=== PATIENT | male | born 1955 | race Caucasian/White ===

== ENCOUNTER 2017-05-10 09:51 | Observation (INO) | payer MEDICARE ==
[~2017-05-10] VITALS: Ht 165.1 cm; Wt 66.3 kg
[2017-05-10] VITALS (11 sets, daily range): BP systolic 148–187; BP diastolic 67–86; PULSE 55–68; RESP 12–33; TEMP 94.5–98.6; O2SAT 88–99
[~2017-05-10 09:51] MED LIST: AMLO5TAB22 PO; LISI-357 PO; LYRI150C PO; NAPR500 PO
[2017-05-10] MEDS ORDERED: SODIUM CHLOR 0.9% 1000 ML INJ 1,000 ML IV ONE ×2 (10:00→11:15)
[2017-05-10] MEDS ORDERED: ONDANSETRON HCL 4 MG/2 ML VIAL IV PUSH ONE (10:00)
[2017-05-10] MEDS ORDERED: AMLO5TAB2 PO (10:07)
[2017-05-10] MEDS ORDERED: LYRI150C PO (10:07)
[2017-05-10] MEDS ORDERED: LISI2.5T3 PO (10:07)
--- NOTE | 2017-05-10 10:07 | PD ---
HPI Chief Complaint: Syncope/Near-Syncope Time Seen by Provider: 09:56 Travel History International Travel<30 days: No Contact w/Intl Traveler<30days: No Traveled to known affect area: No History of Present Illness HPI This 61-year-old male apparently had a syncopal episode last night. His girlfriend found him on the floor and got him back in the bed. He then had some vomiting this morning. He has been vomiting off and on for the last few days. He has no history of seizure. He does not recall passing out before. He does say that he vomited twice last night. He had 2 beers last night. He does say that he has been a heavy drinker in the past. He says that several years ago he had DTs. His license has been taken away because of a DUI. He says that he still drinks once a week. He is on medication for hypertension and he takes Lyrica for neuropathy. He says that this morning he got his been a pass out. He was crawling around on his knees because he was extremely dizzy [facility] Past Medical History High Cholesterol: Yes Diabetes: No Hepatitis: Yes (hx of hep c) Hypertension: Yes Neurologic: Yes (bilat legs neuropathy) ?: Not Past Surgical History Endocrine Surgery: Yes (penile implant) Other Surgery: Yes (femoral stent placement) Social History Alcohol Use: Yes (occas. beer) Tobacco Use: No (quit 25 yrs ago smoked for 25+ yrs 2 packs of cigs a day) Substance Use: No Allergies-Medications (Allergen,Severity, Reaction): Coded Allergies: Sulfa (Sulfonamide Antibiotics) (Unverified Allergy, Mild, rash, 05/10/17) Reported Meds & Prescriptions Reported Meds & Active Scripts Active Reported Lisinopril 2.5 Mg Tab 0 PO DAILY Amlodipine (Amlodipine Besylate) 5 Mg Tab 0 PO DAILY Lyrica (Pregabalin) 150 Mg Cap 175 Mg PO BID Review of Systems General / Constitutional: No: Fever, Chills Eyes: No: Diploplia, Blurred Vision HENT: Positive: Vertigo, Lightheadedness Cardiovascular: No: Chest Pain or Discomfort, Palpitations Respiratory: No: Cough, Shortness of Breath Gastrointestinal: Positive: Nausea, Vomiting Genitourinary: No: Urgency, Frequency Musculoskeletal: No: Myalgias, Arthralgias Skin: No Rash Psychiatric: Positive: Substance Abuse Endocrine: No: Heat Intolerance Hematologic/Lymphatic: No: Easy Bruising Physical Exam Narrative GENERAL: Well-developed male SKIN: Focused skin assessment warm/dry. HEAD: Atraumatic. Normocephalic. EYES: Pupils equal and round. No scleral icterus. No injection or drainage. ENT: No nasal bleeding or discharge. Mucous membranes pink and moist. NECK: Trachea midline. No JVD. CARDIOVASCULAR: Regular rate and rhythm. No murmur appreciated. RESPIRATORY: No accessory muscle use. Clear to auscultation. Breath sounds equal bilaterally. GASTROINTESTINAL: Abdomen soft, non-tender, nondistended. Hepatic and splenic margins not palpable. MUSCULOSKELETAL: No obvious deformities. No clubbing. No cyanosis. No edema. NEUROLOGICAL: Awake and alert. He is somewhat slow to answer questions. He says that the is March No obvious cranial nerve deficits. Motor symmetrically weak. slow speech. He does have some past pointing PSYCHIATRIC: Insight limited Data Data Last Documented VS Vital Signs Date Time Temp Pulse Resp B/P (MAP) Pulse Ox O2 Delivery O2 Flow Rate FiO2 05/10/17 10:53 58 16 152/74 (100) 98 Room Air 05/10/17 09:53 95.2 Orders Orders Electrocardiogram (05/10/17 09:57) Complete Blood Count With Diff (05/10/17 09:57) Comprehensive Metabolic Panel (05/10/17 09:57) Troponin I (05/10/17 09:57) Prothrombin Time / Inr (Pt) (05/10/17 09:57) Act Partial Throm Time (Ptt) (05/10/17 09:57) Lipase (05/10/17 09:57) Urinalysis - C+S If Indicated (05/10/17 09:57) Magnesium (Mg) (05/10/17 09:57) Ammonia (05/10/17 09:57) Thyroid Stimulating Hormone (05/10/17 09:57) Ct Brain W/O Iv Contrast(Rout) (05/10/17 09:57) Drug Screen, Random Urine (05/10/17 09:57) Alcohol (Ethanol) (05/10/17 09:57) Sodium Chlor 0.9% 1000 Ml Inj (Ns 1000 M (05/10/17 10:00) Ondansetron Inj (Zofran Inj) (05/10/17 10:00) Thiamine Inj (Thiamine Inj) (05/10/17 10:15) Sodium Chlor 0.9% 1000 Ml Inj (Ns 1000 M (05/10/17 11:15) Labs Laboratory Tests Test 05/10/17 10:15 White Blood Count 7.8 TH/MM3 Red Blood Count 4.74 MIL/MM3 Hemoglobin 15.0 GM/DL Hematocrit 43.6 % Mean Corpuscular Volume 91.8 FL Mean Corpuscular Hemoglobin 31.6 PG Mean Corpuscular Hemoglobin Concent 34.4 % Red Cell Distribution Width 13.6 % Platelet Count 298 TH/MM3 Mean Platelet Volume 8.2 FL Neutrophils (%) (Auto) 80.7 % Lymphocytes (%) (Auto) 9.1 % Monocytes (%) (Auto) 9.8 % Eosinophils (%) (Auto) 0.1 % Basophils (%) (Auto) 0.3 % Neutrophils # (Auto) 6.3 TH/MM3 Lymphocytes # (Auto) 0.7 TH/MM3 Monocytes # (Auto) 0.8 TH/MM3 Eosinophils # (Auto) 0.0 TH/MM3 Basophils # (Auto) 0.0 TH/MM3 CBC Comment DIFF FINAL Differential Comment Prothrombin Time 10.7 SEC Prothromb Time International Ratio 1.0 RATIO Activated Partial Thromboplast Time 27.3 SEC Blood Urea Nitrogen 33 MG/DL Creatinine 1.60 MG/DL Random Glucose 126 MG/DL Total Protein 8.2 GM/DL Albumin 4.0 GM/DL Calcium Level 9.7 MG/DL Magnesium Level 2.7 MG/DL Alkaline Phosphatase 72 U/L Aspartate Amino Transf (AST/SGOT) 59 U/L Alanine Aminotransferase (ALT/SGPT) 57 U/L Total Bilirubin 0.6 MG/DL Sodium Level 141 MEQ/L Potassium Level 4.0 MEQ/L Chloride Level 106 MEQ/L Carbon Dioxide Level 23.5 MEQ/L Anion Gap 12 MEQ/L Estimat Glomerular Filtration Rate 44 ML/MIN Ammonia 11 MCMOL/L Troponin I LESS THAN 0.02 NG/ML Lipase 123 U/L Thyroid Stimulating Hormone 3rd Gen 0.930 uIU/ML Ethyl Alcohol Level 3 MG/DL [facility] Medical Decision Making Medical Screen Exam Complete: Yes Emergency Medical Condition: Yes Medical Record Reviewed: Yes Differential Diagnosis Differential includes syncope, dysrhythmia, dehydration, DTs, seizure Narrative Course CT scan is read as negative. His BUNs is 33 with creatinine of 1.6. Ammonia level was 11. Hemoglobin is 15. EKG shows sinus rhythm at a rate of 60. There is a right bundle branch block pattern. Diagnosis Primary Impression: Syncope Qualified Codes: R55 - Syncope and collapse Additional Impression: Dehydration Rafa Clayton MD May 10, 2017 10:07
[2017-05-10] MEDS ORDERED: THIAMINE INJ 100 MG in SODIUM CHLORIDE 0.9% INJ 100 ML IV ONE (10:15)
[2017-05-10 10:21] LABS: AUTOMATED NEUTROPHIL # 6.3 TH/MM3 (1.8-7.7); BASOPHIL % 0.3 % (0.0-2.0); EOSINOPHIL % 0.1 % (0.0-4.0); HEMATOCRIT 43.6 % (39.0-51.0); LYMPH % 9.1 % (9.0-44.0); LYMPHOCYTE # 0.7 TH/MM3 (1.0-4.8); MEAN CELL VOLUME 91.8 FL (80.0-100.0); MEAN CORPUSCULAR HEMOGLOBIN 31.6 PG (27.0-34.0); MEAN CORPUSCULAR HGB CONC 34.4 % (32.0-36.0); MONO % 9.8 % (0.0-8.0); NEUT % 80.7 % (16.0-70.0); PLATELET COUNT 298 TH/MM3 (150-450); RED BLOOD COUNT 4.74 MIL/MM3 (4.50-5.90); RED CELL DISTRIBUTION WIDTH 13.6 % (11.6-17.2); WHITE BLOOD COUNT 7.8 TH/MM3 (4.0-11.0)
[2017-05-10 10:22] LABS: HEMO FLAGS DIFF FINAL
[2017-05-10 10:29] LABS: CHLORIDE 106 MEQ/L (98-107); SODIUM (NA) 141 MEQ/L (136-145)
[2017-05-10 10:33] LABS: ANION GAP 12 MEQ/L (5-15); BICARBONATE 23.5 MEQ/L (21.0-32.0); BLOOD UREA NITROGEN 33 MG/DL (7-18); MAGNESIUM 2.7 MG/DL (1.5-2.5)
[2017-05-10 10:34] LABS: APTT (PATIENT) 27.3 SEC (24.3-30.1); PROTHROMBIN TIME - PATIENT 10.7 SEC (9.8-11.6)
[2017-05-10 10:36] LABS: ALCOHOL 3 MG/DL (0-5); ALT (GPT) 57 U/L (12-78); AST (GOT) 59 U/L (15-37); GLOMERULAR FILTRATION RATE 44 ML/MIN (>89)
[2017-05-10 10:38] LABS: TOTAL BILIRUBIN ADULT 0.6 MG/DL (0.2-1.0)
[2017-05-10 10:39] LABS: ALKALINE PHOSPHATASE 72 U/L (45-117)
--- NOTE | 2017-05-10 11:04 | RADRPT ---
EXAM DATE/TIME: 05/10/2017 10:16 [place] COMPARISON: No previous studies available for comparison. INDICATIONS : Syncopal episode and altered mental status. RADIATION DOSE: 58.65 CTDIvol (mGy) ; Patient motion MEDICAL HISTORY : Hypertension. SURGICAL HISTORY : Femoral stent placement. Orthopedic surgery. ENCOUNTER: Initial ACUITY: 1 day PAIN SCALE: 0/10 LOCATION: cranial TECHNIQUE: Multiple contiguous axial images were obtained of the head. Using automated exposure control and adj ustment of the mA and/or kV according to patient size, radiation dose was kept as low as reasonably a chievable to obtain optimal diagnostic quality images. DICOM format image data is available electro nically for review and comparison. FINDINGS: CEREBRUM: The ventricles are normal for age. No evidence of midline shift, mass lesion, hemorrhage or acute in farction. No extra-axial fluid collections are seen. POSTERIOR FOSSA: The cerebellum and brainstem are intact. The 4th ventricle is midline. The cerebellopontine angle i s unremarkable. EXTRACRANIAL: The visualized portion of the orbits is intact. SKULL: The calvaria is intact. No evidence of skull fracture. CONCLUSION: Normal examination. Ayden Elaine MD on May 10, 2017 at 11:02 Board Certified Radiologist. This report was verified electronically.
[2017-05-10] MEDS ORDERED: LORazepam 1 MG TAB PO PRN (11:30)
[2017-05-10] MEDS ORDERED: LORazepam 2 MG/ML VIAL IV PUSH PRN ×4 (11:30)
[2017-05-10] MEDS ORDERED: LORazepam 2 MG TAB PO PRN (11:30)
[2017-05-10] MEDS ORDERED: SODIUM CHLORIDE 0.9% FLUSH 10 ML FLUSH IV FLUSH PRN (11:30)
[2017-05-10] MEDS ORDERED: FLUMAZENIL 0.5 MG/5 ML VIAL IV PUSH PRN (11:30)
[2017-05-10] MEDS ORDERED: ONDANSETRON HCL 4 MG/2 ML VIAL IVP PRN (11:30)
[2017-05-10] MEDS: ACETAMINOPHEN 325 MG TAB PO PRN (11:59)
--- NOTE | 2017-05-10 12:04 | EKG ---
Date Performed: 05/10/2017 Time Performed: 10:06:01 PTAGE: 61 years EKG: SINUS BRADYCARDIA RIGHT BUNDLE BRANCH BLOCK LEFT ANTERIOR FASCICULAR BLOCK ABNORMAL ECG NO PREVIOUS TRACING DOCTOR: Ivan García Interpretating Date/Time 05/10/2017 12:02:27
[2017-05-10 13:20] LABS: BLOOD, URINE NEG (NEG); GLUCOSE,URINE NEG (NEG); KETONE, URINE TRACE mg/dL (NEG); NITRITE,URINE NEG (NEG); PH, URINE 5.5 (5.0-8.5)
[2017-05-10 13:25] LABS: METHOD OF COLLECTION CLEAN CATCH; URINE COLOR YELLOW (YELLW/STRAW)
[2017-05-10 13:26] LABS: COMMENT (UR) CULT NOT INDICATED; CULTURE IF INDICATED CULT NOT INDICATED; RBC, URINE 0-3 /hpf (0-3); WBC, URINE 0-2 /hpf (0-5)
--- NOTE | 2017-05-10 14:04 | HHI.HP ---
[facility] Service [facility] ([place], [place])ists Primary Care Physician Non-Staff Admission Diagnosis SYNCOPE, DEHYDRATION, ALTERED MENTAL STATUS Diagnoses: (1) Syncope Diagnosis: Principal (2) Prerenal azotemia Diagnosis: Principal (3) Alcohol abuse Diagnosis: Principal Chief Complaint: Past out with confusion, dizziness Travel History International Travel<30 Days: No Contact w/Intl Traveler <30 Da: No Traveled to Known Affected Are: No History of Present Illness Written by Jr Lopez, acting as scribe for Dr. Rodney on 05/10/17 at 13 :49. 61 year-old male with known history of hypertension, hyperlipidemia, history of hepatitis C, alcohol abuse who presented to the hospital because of syncopal episode, passed out. Patient himself does not know exactly what happened. He states he has memory issues for the last year being followed by his regular medical doctor Dr. Adams in [place]. Patient states 6 weeks ago he did undergo full cardiac workup at that time and was normal. However over the last 4 days he does admit to having been woozy, dizziness, fell and hit his head. States that he been having problems with difficulty in walking, more confused. He indicates that he has had tinnitus over the last few weeks. ER documentation indicates that his girlfriend found him on the floor and got him back into the bed. It was indicated that he has been vomiting, and off for the last few days. Is indicated that he got up this morning and he passed out. He was found crawling around on his knees because of extreme dizziness. Records indicated that he used to be a heavy drinker in the past, however he has reduced down to only drinking twice weekly. Patient is orientated to daily week,, however he believes that it is April [id number]., he is orientated to his doctor's name, city. Patient had workup done emergency department without any significant abnormal finding to indicate any reasoning for his lightheadedness, dizziness, syncopal episode Review of Systems Eyes: COMPLAINS OF: Blurred vision Ears, nose, mouth, throat: COMPLAINS OF: Tinnitus Cardiovascular: COMPLAINS OF: Syncope Gastrointestinal: COMPLAINS OF: Nausea Neurologic: COMPLAINS OF: Paresthesias (right arm since shoulder surgery) Except as stated in HPI: all other systems reviewed are Neg Past Family Social History Past Medical History Hypertension Peripheral neuropathy Hyponatremia History of hepatitis C Past Surgical History Right shoulder surgery Umbilical hernia repair Left femoral stent placement Penile implant Reported Medications Reported Meds & Active Scripts Active Reported Lisinopril 2.5 Mg Tab 0 PO DAILY Amlodipine (Amlodipine Besylate) 5 Mg Tab 0 PO DAILY Lyrica (Pregabalin) 150 Mg Cap 175 Mg PO BID Allergies: Coded Allergies: Sulfa (Sulfonamide Antibiotics) (Unverified Allergy, Mild, rash, 05/10/17) Social History Patient admits to having problems with alcohol abuse, he states that he cut back to where he only drinks a couple drinks every Tuesday in order to try to dinner with his girlfriend as well as every Tuesday during football. Patient quit smoking 25 years ago, prior to that he smoked 2 pack a cigarettes a day. Denies any illicit drug Physical Exam Vital Signs Vital Signs Date Time Temp Pulse Resp B/P (MAP) Pulse Ox O2 Delivery O2 Flow Rate FiO2 05/10/17 12:55 05/10/17 11:57 65 16 169/79 (109) 98 Room Air 05/10/17 10:53 94.5 58 16 152/74 (100) 98 Room Air 05/10/17 10:42 57 18 162/71 (101) 95 Room Air 05/10/17 09:57 68 Room Air 05/10/17 09:53 95.2 65 18 173/84 (113) 98 Physical Exam GENERAL: Well-developed, well-nourished, in no acute distress. alert and orientated to person, daily, year, city, state HEENT: Head is normocephalic without any lesions or masses noted. Facial features are symmetric. Eyes: Pupils equal round reactive to light. Extraocular muscles are intact. Conjunctivae were clear. Oropharyngeal: Pharynx without any erythema edema. Tongue is midline without deviation. Buccal mucosa is moist without any masses or lesions. Dentition in poor repair NECK: Supple without any masses. Trachea midline no deviation. No JVD, no bruits are appreciated CARDIAC: Regular rhythm, regular rate. S1/S2 are heard. No murmurs gallops or rubs. LUNGS: Clear to auscultation bilaterally. No wheeze, rhonchi or rales. No use of accessory muscles on inspiration or expiration. ABDOMEN: Soft, nontender. Nondistended. Bowel sounds heard in all 4 quadrants. No organomegaly or masses. Negative rebound, negative guarding EXTREMITIES: No edema, pulses are equal bilaterally. No cyanosis or clubbing NEUROLOGY: Mood and affect appear appropriate. Cranial nerves II through XII grossly intact. Muscle strength 5/5 in upper and lower extremities bilaterally. Deep tendon reflexes are 2+ in upper and lower extremities bilaterally. Laboratory Laboratory Tests Test 05/10/17 10:15 05/10/17 13:00 White Blood Count 7.8 Red Blood Count 4.74 Hemoglobin 15.0 Hematocrit 43.6 Mean Corpuscular Volume 91.8 Mean Corpuscular Hemoglobin 31.6 Mean Corpuscular Hemoglobin Concent 34.4 Red Cell Distribution Width 13.6 Platelet Count 298 Mean Platelet Volume 8.2 Neutrophils (%) (Auto) 80.7 Lymphocytes (%) (Auto) 9.1 Monocytes (%) (Auto) 9.8 Eosinophils (%) (Auto) 0.1 Basophils (%) (Auto) 0.3 Neutrophils # (Auto) 6.3 Lymphocytes # (Auto) 0.7 Monocytes # (Auto) 0.8 Eosinophils # (Auto) 0.0 Basophils # (Auto) 0.0 CBC Comment DIFF FINAL Differential Comment Prothrombin Time 10.7 Prothromb Time International Ratio 1.0 Activated Partial Thromboplast Time 27.3 Blood Urea Nitrogen 33 Creatinine 1.60 Random Glucose 126 Total Protein 8.2 Albumin 4.0 Calcium Level 9.7 Magnesium Level 2.7 Alkaline Phosphatase 72 Aspartate Amino Transf (AST/SGOT) 59 Alanine Aminotransferase (ALT/SGPT) 57 Total Bilirubin 0.6 Sodium Level 141 Potassium Level 4.0 Chloride Level 106 Carbon Dioxide Level 23.5 Anion Gap 12 Estimat Glomerular Filtration Rate 44 Ammonia 11 Troponin I LESS THAN 0.02 Lipase 123 Thyroid Stimulating Hormone 3rd Gen 0.930 Ethyl Alcohol Level 3 Urine Collection Type CLEAN CATCH Urine Color YELLOW Urine Turbidity CLEAR Urine pH 5.5 Urine Specific [place] 1.008 Urine Protein NEG Urine Glucose (UA) NEG Urine Ketones TRACE Urine Occult Blood NEG Urine Nitrite NEG Urine Bilirubin NEG Urine Leukocyte Esterase NEG Urine RBC 0-3 Urine WBC 0-2 Microscopic Urinalysis Comment CULT NOT INDICATED Urine Barbiturates Screen NEG Urine Amphetamines Screen NEG Result Diagram: 05/10/17 1015 05/10/17 1015 Imaging Last Impressions Head CT 05/10/17 0957 Signed Impressions: Service Date/Time: Wednesday, May 10, 2017 10:16 - CONCLUSION: Normal examination. MD Tanner Poe VTE Risk Assessment Capaleksey VTE Risk Assessment: Mod/High Risk (score >= 2) Caprini Risk Assessment Model Point Value = 1 Point Value = 2 Point Value = 3 Point Value = 5 Age 41-60 Minor surgery BMI > 25 kg/m2 Swollen legs Varicose veins or History of unexplained or recurrent spontaneous Oral contraceptives or hormone replacement Sepsis (< 1 month) Serious lung disease, including pneumonia (< 1 month) Abnormal pulmonary function Acute myocardial infarction Congestive heart failure (< 1 month) History of inflammatory bowel disease Medical patient at bed rest Age 61-74 Arthroscopic surgery Major open surgery (> 45 min) Laparoscopic surgery (> 45 min) Malignancy Confined to bed (> 72 hours) Immobilizing plaster cast Central venous access Age >= 75 History of VTE Family history of VTE Factor V Leiden Prothrombin [id number] Lupus anticoagulant Anticardiolipin antibodies Elevated serum homocysteine Heparin-induced thrombocytopenia Other congenital or acquired thrombophilia Stroke (< 1 month) Elective arthroplasty Hip, pelvis, or leg fracture Acute spinal cord injury (< 1 month) Prophylaxis Regimen Total Risk Factor Score Risk Level Prophylaxis Regimen 0-1 Low Early ambulation 2 Moderate Order ONE of the following: *Sequential Compression Device (SCD) *Heparin 5000 units SQ BID 3-4 Higher Order ONE of the following medications: *Heparin 5000 units SQ TID *Enoxaparin/Lovenox 40 mg SQ daily (WT < 150 kg, CrCl > 30 mL/min) *Enoxaparin/Lovenox 30 mg SQ daily (WT < 150 kg, CrCl > 10-29 mL/min) *Enoxaparin/Lovenox 30 mg SQ BID (WT < 150 kg, CrCl > 30 mL/min) AND/OR *Sequential Compression Device (SCD) 5 or more Highest Order ONE of the following medications: *Heparin 5000 units SQ TID (Preferred with Epidurals) *Enoxaparin/Lovenox 40 mg SQ daily (WT < 150 kg, CrCl > 30 mL/min) *Enoxaparin/Lovenox 30 mg SQ daily (WT < 150 kg, CrCl > 10-29 mL/min) *Enoxaparin/Lovenox 30 mg SQ BID (WT < 150 kg, CrCl > 30 mL/min) AND *Sequential Compression Device (SCD) Assessment and Plan Assessment and Plan Syncopal episode, lightheadedness, dizziness Unknown etiology this time could be secondary to alcoholism, postural hypotension, vertigo, vascular disease CT scan of the brain does not indicate any acute abnormality Obtain orthostatic vitals Obtain echocardiogram Obtain EEG Continue neuro checks Prerenal azotemia Could be secondary to recent nausea, vomiting, alcohol use Continue IV fluids Continue monitor renal function Alcohol abuse Continue monitor for withdrawal symptoms CIWA protocol Hypertension Continue home medications, amlodipine, lisinopril DVT prevention Sequential compression devices This note was transcribed by scribe. Huang, Dr. Sarah Rodney personally performed the history, physical exam, and medical decision making; and confirmed the accuracy of the information in the transcribed note. Authenticated by Dr. Sarah Rodney on 05/11/17 at 08:12. Problem Qualifiers (1) Syncope: Qualified Codes: R55 - Syncope and collapse Jr Lopez May 10, 2017 14:04 Sarah Rodney MD May 11, 2017 08:12
[2017-05-10] MEDS: SODIUM CHLOR 0.9% 1000 ML INJ 1,000 ML IV SCH ×2 (15:43→21:30)
[2017-05-10] MEDS ORDERED: SERT-132 PO (20:31)
[2017-05-10] MEDS ORDERED: ATOR10TA15 PO (20:31)
[2017-05-10] MEDS ORDERED: LOSA100T PO (20:31)
[2017-05-10] MEDS: SODIUM CHLORIDE 0.9% FLUSH 10 ML FLUSH IV FLUSH SCH (21:00)
[2017-05-10] MEDS ORDERED: PREGABALIN 100 MG CAP PO ONE (21:00)
--- NOTE | 2017-05-10 21:48 | MG ---
cc: STAN POLO Lab No: Date: 05/10/2017 Age: Sex: M Race: ELECTROENCEPHALOGRAM NUMBER [id number] Awake and sleep. Hyperventilation not performed. INDICATION Syncopal episode, vomiting. Neuropathy. MEDICATIONS Lyrica. DESCRIPTION A diffuse 7 Hz rhythm is noted, 60 microvolts. The recording overall is synchronous and symmetric. Sometimes down to 6 Hz diffuse slowing is also seen. The recording overall is synchronous and symmetric. No epileptiform or seizure activity is noted. Photic stimulation was performed without significant posterior driving. IMPRESSION Some mild diffuse theta slowing consistent with a mild diffuse encephalopathy but no focal abnormality was noted. No seizure activity was. MD PHAM MirM/KK /9:32 PM /9:41 PM
[2017-05-11] VITALS (11 sets, daily range): BP systolic 164–185; BP diastolic 67–84; PULSE 56–94; RESP 12–22; TEMP 97.8–98.6; O2SAT 96–98
[2017-05-11] MEDS: SODIUM CHLOR 0.9% 1000 ML INJ 1,000 ML IV SCH (02:31)
[2017-05-11] MEDS: ACETAMINOPHEN 325 MG TAB PO PRN (02:31)
[2017-05-11 04:49] LABS: AUTOMATED NEUTROPHIL # 3.9 TH/MM3 (1.8-7.7); BASOPHIL % 0.5 % (0.0-2.0); EOSINOPHIL % 0.8 % (0.0-4.0); HEMATOCRIT 41.9 % (39.0-51.0); HEMO FLAGS DIFF FINAL; LYMPH % 25.4 % (9.0-44.0); LYMPHOCYTE # 1.5 TH/MM3 (1.0-4.8); MONO % 9.9 % (0.0-8.0); NEUT % 63.4 % (16.0-70.0); PLATELET COUNT 310 TH/MM3 (150-450); RED BLOOD COUNT 4.46 MIL/MM3 (4.50-5.90); RED CELL DISTRIBUTION WIDTH 14.4 % (11.6-17.2)
[2017-05-11 05:11] LABS: BICARBONATE 26.2 MEQ/L (21.0-32.0)
[2017-05-11 05:40] LABS: MAGNESIUM 2.3 MG/DL (1.5-2.5)
[2017-05-11] MEDS: SODIUM CHLORIDE 0.9% FLUSH 10 ML FLUSH IV FLUSH SCH (08:44)
[2017-05-11] MEDS ORDERED: PNEUMOCOCCAL POLYVALENT INJ 25 MCG/0.5 ML SYR IM ONE (10:00)
[2017-05-11] MEDS ORDERED: INFLUENZA VIRUS VACCINE (QUADRIVALENT) 0.5 ML SYR IM ONE (10:00)
--- NOTE | 2017-05-11 11:22 | HHI.PR ---
Subjective Remarks Patient denies any further confusion or dizziness. He is ambulating well. He would like to go home. I reviewed his records from his primary care physician' s office and it shows he additionally has a history of cirrhosis, hepatitis C virus, hypogonadism, and history of Lyme's disease and Moreau's esophagus. Objective Vitals Vital Signs Date Time Temp Pulse Resp B/P (MAP) Pulse Ox O2 Delivery O2 Flow Rate FiO2 05/11/17 07:00 58 05/11/17 04:44 62 12 164/76 (105) 05/11/17 04:26 98.6 70 22 185/75 (111) 96 05/11/17 04:00 62 13 05/11/17 03:02 64 13 168/74 (105) 05/11/17 00:05 56 16 164/67 (99) 97 05/10/17 23:00 66 05/10/17 20:00 98.6 66 19 159/79 (105) 95 05/10/17 20:00 66 05/10/17 16:01 55 22 148/68 (94) 95 05/10/17 15:00 68 05/10/17 15:00 58 12 148/68 (94) 05/10/17 14:00 62 33 149/67 (94) 152/72 (98) 148/68 (94) 05/10/17 13:39 64 14 166/74 (104) 88 05/10/17 13:35 97.4 62 27 187/86 (119) 99 05/10/17 12:55 05/10/17 11:57 65 16 169/79 (109) 98 Room Air I/O 05/10/17 05/10/17 05/10/17 05/11/17 05/11/17 05/11/17 07:00 15:00 23:00 07:00 15:00 23:00 Intake Total 2101 ml 514 ml 1340 ml Output Total 1850 ml 1800 ml Balance 2101 ml -1336 ml -460 ml Intake Oral 245 ml 240 ml IV Total 2101 ml 269 ml 1100 ml Output Urine Total 1850 ml 1800 ml # Voids 3 2 # Bowel Movements 0 Result Diagram: 05/11/17 0425 05/11/17 0425 Objective Remarks GENERAL: Well-nourished, well-developed patient. SKIN: Warm and dry. HEAD: Normocephalic. EYES: No scleral icterus. No injection or drainage. NECK: Supple, trachea midline. No JVD or lymphadenopathy. CARDIOVASCULAR: Regular rate and rhythm without murmurs, gallops, or rubs. RESPIRATORY: Breath sounds equal bilaterally. No accessory muscle use. GASTROINTESTINAL: Abdomen soft, non-tender, nondistended. EXTREMITIES: No cyanosis, or edema. NEUROLOGICAL: Awake, alert, and oriented x 3. Non-focal. A/P Problem List: (1) Syncope ICD Code: R55 - Syncope and collapse Status: Acute (2) Prerenal azotemia ICD Code: R79.89 - Other specified abnormal findings of blood chemistry (3) Alcohol abuse ICD Code: F10.10 - Alcohol abuse, uncomplicated Assessment and Plan Syncopal episode, lightheadedness, dizziness Unknown etiology this time could be secondary to alcoholism, postural hypotension, vertigo, vascular disease - symptoms have now resolved Orthostatics were negative EEG showed mild diffuse encephalopathy CT scan of the brain does not indicate any acute abnormality Follow-up echocardiogram Prerenal azotemia Could be secondary to recent nausea, vomiting, alcohol use Renal function normal today Alcohol abuse Continue monitor for withdrawal symptoms CIWA protocol Hypertension Continue home medications, amlodipine, lisinopril DVT prevention Sequential compression devices Discharge Planning Discharge home with 2-D echocardiogram negative. Follow-up with primary care physician next week Problem Qualifiers (1) Syncope: Qualified Codes: R55 - Syncope and collapse Sarah Rodney MD May 11, 2017 11:22
--- NOTE | 2017-05-11 12:22 | ECHRPT ---
Indication: SHORTNESS OF BREATH CONCLUSIONS The left ventricular systolic function is normal with an estimated ejection fraction in the range of 60-65%. Normal left ventricular size. Wall thickness is normal. No regional wall motion abnormalities are present. [id number] mitral valve regurgitation. Aortic valve sclerosis is present. There is moderate tricuspid regurgitation. The estimated pulmonary arterial pressure is 44.3 mmHg. Trivial pulmonary valve regurgitation. BP: 164 / 76 HR: 105 Rhythm: Sinus MEASUREMENTS (Male / Female) Normal Values Technical Quality:Good 2D ECHO LV Diastolic Diameter PLAX 4.0 cm 4.2 - 5.9 / 3.9 - 5.3 cm LV Systolic Diameter PLAX 2.7 cm IVS Diastolic Thickness 1.1 cm 0.6 - 1.0 / 0.6 - 0.9 cm LVPW Diastolic Thickness 1.1 cm 0.6 - 1.0 / 0.6 - 0.9 cm LV Relative Wall Thickness 0.6 RV Internal Dim ED PLAX 2.6 cm LVOT Diameter 2.0 cm LA Systolic Diameter LX 3.5 cm 3.0 - 4.0 / 2.7 - 3.8 cm LV Ejection Fraction MOD 4C 67.4 % LV Cardiac Index MOD 4C 3716.6 cm/minm LV Ejection Fraction 4C AL 68.0 % LV Cardiac Index 4C AL 3872.3 cm/minm M-MODE Aortic Root Diameter MM 3.0 cm LA Systolic Diameter MM 3.3 cm LA Ao Ratio MM 1.1 AV Cusp Separation MM 2.1 cm DOPPLER AV Peak Velocity 124.0 cm/s AV Peak Gradient 6.2 mmHg LVOT Peak Velocity 102.0 cm/s LVOT Peak Gradient 4.2 mmHg AV Area Cont Eq pk 2.6 cm MV Area PHT 2.8 cm Mitral E Point Velocity 77.5 cm/s Mitral A Point Velocity 73.1 cm/s Mitral E to A Ratio 1.1 LV E' Lateral Velocity 10.9 cm/s Mitral E to LV E' Lateral Ratio 7.1 LV E' Septal Velocity 6.1 cm/s Mitral E to LV E' Septal Ratio 12.6 TR Peak Velocity 293.0 cm/s TR Peak Gradient 34.3 mmHg Right Atrial Pressure 10.0 mmHg Pulmonary Artery Systolic Pressu 44.3 mmHg Right Ventricular Systolic Press 44.3 mmHg PV Peak Velocity 83.3 cm/s PV Peak Gradient 2.8 mmHg FINDINGS LEFT VENTRICLE The left ventricular systolic function is normal with an estimated ejection fraction in the range of 60-65%. Normal left ventricular size. Wall thickness is normal. No regional wall motion abnormalities are present. LEFT ATRIUM The left atrial size is normal. ATRIAL SEPTUM Normal atrial septal thickness without atrial level shunting by limited color doppler interrogation. AORTA The aortic root and proximal ascending aorta are normal in size on limited imaging. MITRAL VALVE [id number] mitral valve regurgitation. AORTIC VALVE Aortic valve sclerosis is present. TRICUSPID VALVE There is moderate tricuspid regurgitation. The estimated pulmonary arterial pressure is 44.3 mmHg. PULMONARY VALVE Trivial pulmonary valve regurgitation. VESSELS The inferior vena cava is normal in size. PERICARDIUM No pericardial effusion. Will Lui MD, FACC (Electronically Signed) Final Date:11 May 2017 12:22
== END 2017-05-11 14:10 | disposition home or self-care (01) ==
LOC: PHED 09:51 → INTOOBSV 11:32 → PHEDA 11:32 → PHICU 13:00
PROVIDERS: ADMIT Family Medicine; ATTEND Family Medicine
DX: R55 Syncope and collapse (principal); R79.89 Other specified abnormal findings of blood chemistry; F10.10 Alcohol abuse, uncomplicated; I10 Essential (primary) hypertension; G62.9 Polyneuropathy, unspecified; K22.70 Barrett's esophagus without dysplasia; G93.40 Encephalopathy, unspecified; I45.10 Unspecified right bundle-branch block; Z87.891 Personal history of nicotine dependence; W19.XXXA Unspecified fall, initial encounter; Z23 Encounter for immunization
CPT/HCPCS: 70450; 80048; 80053; 80307; 81001; 82140; 83690; 83735; 84443; 84484; 85025; 85610; 85730; 90732; 93005; 93306; 95819; 96361; 96365; 96375; 96376; 97110; 97116; 97162; 99285; G0008; G0009; G0378; G8987; G8988; J2405; J3411; J7030; Q2038; 90471; 90686